=== PATIENT | female | born 1995 | race Caucasian/White ===

== ENCOUNTER 2016-12-26 02:42 | Emergency (ER) | payer MEDICAID, OTHER ==
[2016-12-26 03:03] VITALS: O2SAT 100
[2016-12-26] MEDS ORDERED: Sodium Chloride 0.9% 1,000 ML IV ONE (03:23)
--- NOTE | 2016-12-26 03:28 | C.PDOC ---
History Of Present Illness <Maren Hamlin - Last Filed: 12/26/16 05:03> <Gloria Lara - Last Filed: 12/26/16 08:11> 21 year old female presents to the ED with complaints of 2 episodes of syncope this evening. Patient was in a bar, had a few drinks, then got nauseous and went to bathroom. She vomited 5-6 times food like substances, then became cold and clammy with tingling hands and fainted onto floor and hit her head and chin on the ground. Patient is unsure how long she was unconscious before friends found her;they sat her in a chair and she fainted again but did not fall to the ground. Patient denies cp and sob. no abdominal pain, no neck pain. no weakness to extremities. +tingling in hands. (Gloria Lara) <Maren Hamlin - Last Filed: 12/26/16 05:03> History Per: Patient History/Exam Limitations: no limitations Onset/Duration Of Symptoms: Hrs Current Symptoms Are (Timing): Still Present Associated Symptoms Preceding Syncopal Episode: No Predromal Symptoms (Sudden Onset) Seizure Or Post-ictal Symptoms: None Fall Associated With With Symptoms: Yes Recent travel outside of the [place]: No <Gloria Lara - Last Filed: 12/26/16 08:11> Time Seen by Provider: 12/26/16 03:07 Chief Complaint (Nursing): Syncope Past Medical History Reviewed: Historical Data, Nursing Documentation, Vital Signs - Medical History PMH: Anemia Family History: States: Unknown Family Hx - Social History Hx Tobacco Use: No Hx Alcohol Use: Yes Hx Substance Use: No - Immunization History Hx Tetanus Toxoid Vaccination: No Hx Influenza Vaccination: No Hx Pneumococcal Vaccination: No <Gloria Lara - Last Filed: 12/26/16 08:11> Vital Signs: Last Vital Signs Temp 98.2 F 12/26/16 02:55 Pulse 95 H 12/26/16 02:55 Resp 18 12/26/16 02:55 BP 103/74 12/26/16 02:55 Pulse Ox 100 12/26/16 08:05 - [facility] Procedures MONITORING NOS (05/26/13) LOW CERVICAL (05/26/13) PACKED CELL TRANSFUSION (03/20/13) Review Of Systems Eyes: Negative for: Vision Change, Redness ENT: Positive for: Other (chin pain) Cardiovascular: Positive for: Light Headedness. Negative for: Chest Pain Respiratory: Negative for: Cough, Shortness of Breath Gastrointestinal: Positive for: Nausea, Vomiting. Negative for: Abdominal Pain , Diarrhea Genitourinary: Negative for: Dysuria, Frequency Musculoskeletal: Negative for: Neck Pain Skin: Negative for: Rash Neurological: Negative for: Weakness, Numbness <Gloria Lara - Last Filed: 12/26/16 08:11> Physical Exam <Maren Hamlin - Last Filed: 12/26/16 05:03> <Gloria Lara - Last Filed: 12/26/16 08:11> - Physical Exam Additional Physical Exam Comments: Constitutional: No acute distress. WDWN. Head: Normocephalic. small 1 cm hematoma left forehead. no rice sign Eyes: PERRL. EOMI. ENT: Moist mucous membranes. Neck: Supple, no midline tenderness. tenderness and ecchymosis to chin. . Cardiovascular: Regular rate and rhythm. Chest: No tenderness. Respiratory: Clear to auscultation bilaterally. GI: Soft. Nontender. Nondistended. Normoactive bowel sounds. No rebound. No guarding. Back: No CVA and no mid-line tenderness. Musculoskeletal: No tenderness or swelling of extremities. Skin: No rash. Neurologic: Alert and oriented, no focal deficit. motor strength 5/5 , sensation intact. gait steady. (Gloria Lara) ED Course And Treatment ECG: Interpreted By Me, Viewed By Me ECG Rhythm: Sinus Rhythm (75), Nonspecific Changes Pulse Ox Interpretation: Normal <Maren Hamlin - Last Filed: 12/26/16 05:03> - Laboratory Results Result Diagrams: 12/26/16 04:58 12/26/16 04:58 ECG Rhythm: Sinus Rhythm Interpretation Of EC bpm NSR with sinus arrythmia O2 Sat by Pulse Oximetry: 100 - CT Scan/US CT Head Without Intravenous Contrast Other Rad Studies (CT/US): Read By Radiologist, Radiology Report Reviewed CT/US Interpretation: IMPRESSION: No acute findings. Progress Note: Patient feeling better now, has mild headache, mild nausea. <Gloria Lara - Last Filed: 12/26/16 08:11> Medical Decision Making <Maren Hamlin - Last Filed: 12/26/16 05:03> <Gloria Lara - Last Filed: 12/26/16 08:11> Medical Decision Making: pt reports still feeling a bit lightheaded and nauseous; another dose of zofran ordered; ivf opened wide. labs normal, ekg no acute changes. head ct neg. speech clear, pt alert and awake with clear speech. 806 am: pt feeling better, no longer nauseous, ambulates steadily around ed. will d/c with outpatient medical clinic. (Gloria Lara) Disposition <Maren Hamlin - Last Filed: 12/26/16 05:03> Counseled Patient/Family Regarding: Studies Performed, Diagnosis, Need For Followup - Disposition Disposition Time: 08:10 <Gloria Lara - Last Filed: 12/26/16 08:11> - Disposition Referrals: [facility] [Outside] [facility] [Outside] Disposition: HOME/ ROUTINE Condition: STABLE Additional Instructions: Follow up in medical clinic as soon as possible. NO drinking alcohol. Return to ER for any worsening symptoms, chest pain, shortness of breath, nausea or vomiting or any other concerning symptoms. Instructions: Syncope (ED) Forms: General Discharge Instructions - Clinical Impression Clinical Impression: Syncope <Maren Hamlin - Last Filed: 12/26/16 05:03> - Scribe Statement The provider has reviewed the documentation as recorded by the Scribe <Gloria Lara - Last Filed: 12/26/16 08:11> - Scribe Statement Yahaira Bray All medical record entries made by the Scribvanessa were at my direction and personally dictated by me. I have reviewed the chart and agree that the record accurately reflects my personal performance of the history, physical exam, medical decision making, and the department course for this patient. I have also personally directed, reviewed, and agree with the discharge instructions and disposition. (Gloria Lara)
[2016-12-26] MEDS ORDERED: Sodium Chloride 0.9% 1,000 ML ONE (04:46)
[2016-12-26 04:54] LABS: RBC URINE < 1 /hpf (0-3); URINE BACTERIA RARE (<OCC); URINE BILIRUBIN NEGATIVE (NEGATIVE); URINE BLOOD NEGATIVE (NEGATIVE); URINE COLOR Yellow (YELLOW); URINE GLUCOSE (UA) NORMAL (Normal); URINE KETONE TRACE mg/dL (NEGATIVE); URINE LEUKOCYTE ESTERASE 1+ Leu/uL (Negative); URINE PROTEIN 1+ mg/dL (NEGATIVE); URINE UROBILINOGEN NORMAL mg/dL (0.2-1.0); WBC URINE 9 /hpf (0-5)
[2016-12-26 05:01] LABS: BASO # 0.1 K/uL (0.0-0.2); BASO % 0.4 % (0.0-2.0); EOS # 0.1 K/uL (0.0-0.7); EOS % 0.4 % (0.0-4.0); HEMATOCRIT 40.3 % (34.0-47.0); LYMPH # 2.3 K/uL (1.0-4.3); LYMPH % 16.7 % (20.0-40.0); MEAN CELL VOLUME 74.3 fL (81.0-99.0); MEAN CORPUSCULAR HEMOGLOBIN 23.8 pg (27.0-31.0); MONO # 0.6 K/uL (0.0-0.8); MONO % 4.3 % (0.0-10.0); RED CELL DISTRIBUTION WIDTH 14.9 % (11.5-14.5)
[2016-12-26 05:09] LABS: CHLORIDE 99 mmol/L (98-107); POTASSIUM 5.1 mmol/L (3.6-5.2); SODIUM 135 mmol/L (132-148)
[2016-12-26 05:11] LABS: GFR AFRICAN-AMERICAN > 60
[2016-12-26 05:12] LABS: ALKALINE PHOSPHATASE 47 U/L (38-126); ALT/SGPT 31 U/L (9-52); AST/SGOT 32 U/L (14-36); BILIRUBIN,TOTAL 0.6 mg/dL (0.2-1.3); BLOOD UREA NITROGEN 13 mg/dL (7-17); CARBON DIOXIDE 21 mmol/L (22-30); GLUCOSE,RANDOM 90 mg/dL (65-105); TOTAL PROTEIN 8.5 g/dL (6.3-8.3)
[2016-12-26 05:13] LABS: CALCIUM 9.6 mg/dl (8.6-10.4)
[2016-12-26 05:15] LABS: ALB/GLOB RATIO 1.2 (1.0-2.1)
--- NOTE | 2016-12-26 08:33 | CT ---
PROCEDURE: CT HEAD WITHOUT CONTRAST. HISTORY: syncope head trauma COMPARISON: None available. TECHNIQUE: Axial computed tomography images were obtained through the head/brain without intravenous contrast. Radiation dose: Total exam DLP = 797 mGy-cm. This CT exam was performed using one or more of the following dose reduction techniques: Automated exposure control, adjustment of the mA and/or kV according to patient size, and/or use of iterative reconstruction technique. FINDINGS: HEMORRHAGE: No intracranial hemorrhage. BRAIN: Small focal hypodensity seen within the right basal ganglia may represent a prominent perivascular space ; however, a subtle small lacunar infarct cannot be excluded. This is best seen on series 4, images 17 and 18. Correlation with MRI may be helpful if clinically indicated. VENTRICLES: Unremarkable. No hydrocephalus. CALVARIUM: Unremarkable. PARANASAL SINUSES: Mucosal thickening of the paranasal sinuses. MASTOID AIR CELLS: Unremarkable as visualized. No inflammatory changes. OTHER FINDINGS: None. IMPRESSION: Small focal hypodensity seen within the right basal ganglia may represent a prominent perivascular space ; however, a subtle small lacunar infarct cannot be excluded. This is best seen on series 4, images 17 and 18. Correlation with MRI may be helpful if clinically indicated. Sinus mucosal disease. These findings were preliminarily reported at 6:09 a.m. on 12/26/[address] West Schroeder from [facility].
[2016-12-26 08:52] VITALS: BP 97/60; PULSE 58; RESP 16; TEMP 98
== END 2016-12-26 08:51 | disposition home or self-care (01) ==
LOC: C.ER 02:42
DX: R55 Syncope and collapse (principal)
CPT/HCPCS: 70450; 80053; 81001; 85025; 96361; 96374; 96376; 99285; J2405; J7040